=== PATIENT | female | born 1990 | race Caucasian/White ===

== ENCOUNTER 2020-12-27 11:05 | Emergency (ER) | payer MEDICAID ==
[~2020-12-27] VITALS: Ht 167.6 cm; Wt 102.1 kg
[2020-12-27 11:24] VITALS: BP_SYST 139
[2020-12-27] MEDS ORDERED: AMOX-426 PO (12:29)
[2020-12-27 12:42] VITALS: BP_SYST 139
== END 2020-12-27 12:40 | disposition home or self-care (01) ==
LOC: SED 11:05
DX: H66.92 Otitis media, unspecified, left ear (principal); Z79.899 Other long term (current) drug therapy
CPT/HCPCS: 99283

== ENCOUNTER 2022-04-16 16:23 | Emergency (ER) | payer MEDICAID ==
[~2022-04-16] VITALS: Ht 167.6 cm; Wt 98.0 kg
[~2022-04-16 16:23] MED LIST: AMOX-426 PO
[2022-04-16 16:39] VITALS: BP_SYST 153
[2022-04-16] MEDS ORDERED: LIDOCAINE 1% 10 MG/ML, 20 ML MDV INJ ONE (17:30)
[2022-04-16] MEDS ORDERED: IBUPROFEN 800 MG TABLET PO ONE (17:30)
[2022-04-16] MEDS ORDERED: BACITRACIN 1 GM OINT TP ONE (18:10)
[2022-04-16] MEDS ORDERED: CEPH250C PO (18:12)
[2022-04-16] MEDS ORDERED: IBUP-1971 PO (18:12)
[2022-04-16] MEDS ORDERED: cephALEXin 500 MG CAPSULE PO ONE (18:15)
[2022-04-16 18:41] VITALS: BP_SYST 134
== END 2022-04-16 18:41 | disposition home or self-care (01) ==
LOC: SED 16:23
DX: S61.012A Laceration without foreign body of left thumb without damage to nail, initial encounter (principal); Z79.899 Other long term (current) drug therapy; W26.8XXA Contact with other sharp object(s), not elsewhere classified, initial encounter; Y93.89 Activity, other specified; Y92.89 Other specified places as the place of occurrence of the external cause; Y99.8 Other external cause status
CPT/HCPCS: 99283; 12001; J2001